=== PATIENT | male | born 1955 | race African-American/Black ===

== ENCOUNTER 2021-02-03 09:36 | Outpatient (CLI) | payer MEDICARE | END 2021-02-03 09:37 | disposition home or self-care (01) | LOC: CSHULT 09:36 | PROVIDERS: ATTEND Family Medicine | DX: G45.9 Transient cerebral ischemic attack, unspecified (principal); M21.372 Foot drop, left foot; M62.81 Muscle weakness (generalized); I10 Essential (primary) hypertension | CPT/HCPCS: 93306; 93880 ==